=== PATIENT | female | born 1950 | race Caucasian/White ===

== ENCOUNTER 2017-07-04 17:05 | Emergency (ER) | payer BC, MEDICARE, OTHER ==
--- NOTE | 2017-07-04 17:15 | PDOC ---
Rapid Medical Evaluation Time Seen by Provider: 07/04/17 17:12 Medical Evaluation: 07/04/17 17:12 I have performed a brief in-person evaluation of this patient. The patient presents with a chief complaint of:R lower abd pain radiating to lower back and R thigh w/ urinary freq, no n/v/f/c. Denies any pmhx Pertinent physical exam findings:+ttp to R suprapubic area, no CVAT I have ordered the following:labs/ua The patient will proceed to the ED for further evaluation. Discharge Disposition - Diagnosis Abdominal pain Qualifiers: Abdominal location: right lower quadrant Qualified Code(s): R10.31 - Right lower quadrant pain - Referrals - Patient Instructions - Post Discharge Activity
[2017-07-04 17:19] VITALS: BP 159/86; PULSE 86; TEMP 98.2; BMI 25.8
[2017-07-04 17:44] LABS: BASO % 0.6 % (0-2.0); EOS % 2.5 % (0-4.5); HEMATOCRIT 40.4 % (32.4-45.2); HEMOGLOBIN 13.2 GM/dL (10.7-15.3); LYMPH % 25.5 % (8-40); MCH 26.7 pg (25.7-33.7); MCHC 32.8 g/dl (32.0-36.0); MEAN CELL VOLUME 81.4 fl (80-96); MEAN PLT VOLUME 8.8 fl (7.5-11.1); MONO % 6.1 % (3.8-10.2); NEUT % 65.3 % (42.8-82.8); PLATELET COUNT 267 K/MM3 (134-434); RBC 4.96 M/mm3 (3.60-5.2); RDW 14.6 % (11.6-15.6); WHITE BLOOD COUNT 9.1 K/mm3 (4.0-10.0)
[2017-07-04 18:09] LABS: ALBUMIN 4.1 g/dl (3.4-5.0); ALK PHOS 110 U/L (45-117); ANION GAP 8 (8-16); BILIRUBIN,TOTAL 0.2 mg/dL (0.2-1.0); BLOOD UREA NITROGEN 15 mg/dL (7-18); CHLORIDE 106 mmol/L (98-107); CO2 25 mmol/L (21-32); CREATININE 0.8 mg/dL (0.55-1.02); GLUCOSE,RANDOM 191 mg/dL (74-106); LIPASE 89 U/L (73-393); POTASSIUM 3.9 mmol/L (3.5-5.1); SGOT/AST 16 U/L (15-37); SGPT/ALT 31 U/L (12-78); SODIUM 139 mmol/L (136-145); TOT PROT 7.9 g/dl (6.4-8.2)
[2017-07-04 19:58] LABS: URINE APPEARANCE SLCLOUDY; URINE BILIRUBIN NEGATIVE (<2.0 mg/dL); URINE COLOR YELLOW; URINE GLUCOSE (UA) NEGATIVE (NEGATIVE); URINE KETONE NEGATIVE (NEGATIVE); URINE LEUK ESTERASE TRACE (NEGATIVE); URINE NITRITE NEGATIVE (NEGATIVE); URINE PROTEIN NEGATIVE (NEGATIVE); URINE UROBILINOGEN NEGATIVE mg/dL (0.2-1.0)
[2017-07-04 20:07] LABS: EPI CELLS RARE /HPF (FEW); URINE MUCUS FEW
--- NOTE | 2017-07-04 20:21 | PDOC ---
History of Present Illness - General History Source: Patient Exam Limitations: No Limitations - History of Present Illness Initial Comments: 07/04/17 20:32 The patient is a 67 year old female, with no significant past medical history, who presents to the emergency department with, right lower quadrant abdominal pain. The patient describes the pain as constant and intermittently radiating down her legs. She reports a normal PO intake. She denies recent fevers, chills, headache or dizziness. She denies recent nausea, vomit, diarrhea or constipation. She denies recent dysuria, frequency, urgency or hematuria. She denies recent chest pain or shortness of breath. Allergies: NKA Past surgical history: Cysts removed from right ovary without complications. Social history: Nonsmoker. Denies EtOH use and recreational drug use. <Sergey Aburto - Last Filed: 07/04/17 20:32> - General History Source: Patient <Sd Parry - Last Filed: 07/05/17 19:17> - General Chief Complaint: Pain, Acute Stated Complaint: PAIN, ACUTE Time Seen by Provider: 07/04/17 17:12 Past History <Sergey Aburto - Last Filed: 07/04/17 20:32> - Past Medical History COPD: No - Suicide/Smoking/Psychosocial Hx Smoking History: Never smoked Have you smoked in the past 12 months: No Information on smoking cessation initiated: No Hx Alcohol Use: No Drug/Substance Use Hx: No Substance Use Type: None <Sd Parry - Last Filed: 07/05/17 19:17> - Past Medical History Allergies/Adverse Reactions: Allergies Allergy/AdvReac Type Severity Reaction Status Date / Time No Known Allergies Allergy Verified 07/04/17 17:16 Home Medications: Ambulatory Orders NK [No Known Home Medication] 07/04/17 Review of Systems - Review of Systems Able to Perform ROS?: Yes Comments:: 07/04/17 20:33 CONSTITUTIONAL: Absent: fever, no chills, no fatigue EYES: Absent: visual changes ENT: Absent: ear pain, no sore throat CARDIOVASCULAR: Absent: chest pain, no palpitations RESPIRATORY: Absent: cough, no SOB GI: Present: RLQ abdominal pain. Absent: no nausea, no vomiting, no constipation, no diarrhea GENITOURINARY: Absent: dysuria, no frequency, no hematuria MUSKULOSKELETAL: Absent: back pain, no arthralgia, no myalgia SKIN: Absent: rash NEURO: Absent: headache All Other Systems: Reviewed and Negative <Sergey Aburto - Last Filed: 07/04/17 20:32> *Physical Exam - Vital Signs Last Vital Signs Temp Pulse Resp BP Pulse Ox 98.2 F 86 16 159/86 100 07/04/17 17:16 07/04/17 17:16 07/04/17 17:16 07/04/17 17:16 07/04/17 17:16 - Physical Exam Comments: 07/04/17 20:34 GENERAL: Well-appearing, well-nourished. No apparent distress. HEENT: Normocephalic, atraumatic. PERRL, EOM intact. CARDIOVASCULAR: Normal S1, S2. Regular rate and rhythm. PULMONARY: Clear to auscultation bilaterally. ABDOMEN: Soft, non-distended, non-tender. EXTREMITIES: Normal ROM in all four extremities. No gross deformities. SKIN: Warm, dry. No rash NEUROLOGICAL: No focal neurological deficits. <Sergey Aburto - Last Filed: 07/04/17 20:32> - Vital Signs Last Vital Signs Temp Pulse Resp BP Pulse Ox 98.2 F 86 16 159/86 100 07/04/17 17:16 07/04/17 17:16 07/04/17 17:16 07/04/17 17:16 07/04/17 17:16 <Sd Parry - Last Filed: 07/05/17 19:17> ED Treatment Course - LABORATORY CBC & Chemistry Diagram: 07/04/17 17:27 07/04/17 17:27 - ADDITIONAL ORDERS Additional order review: Laboratory Results 07/04/17 07/04/17 19:45 17:27 Sodium 139 Potassium 3.9 Chloride 106 Carbon Dioxide 25 Anion Gap 8 BUN 15 Creatinine 0.8 Creat Clearance w eGFR > 60 Random Glucose 191 H Calcium 9.0 Total Bilirubin 0.2 AST 16 ALT 31 Alkaline Phosphatase 110 Total Protein 7.9 Albumin 4.1 Lipase 89 Urine Color Yellow Urine Appearance Slcloudy Urine pH 5.0 Ur Specific [place] 1.023 Urine Protein Negative Urine Glucose (UA) Negative Urine Ketones Negative Urine Blood 1+ H Urine Nitrite Negative Urine Bilirubin Negative Urine Urobilinogen Negative Ur Leukocyte Esterase Trace Urine WBC (Auto) 7 Urine RBC (Auto) 1 Ur Epithelial Cells Rare Urine Mucus Few 07/04/17 17:27 RBC 4.96 MCV 81.4 MCHC 32.8 RDW 14.6 MPV 8.8 Neutrophils % 65.3 Lymphocytes % 25.5 Monocytes % 6.1 Eosinophils % 2.5 Basophils % 0.6 <Sergey Aburto - Last Filed: 07/04/17 20:32> - LABORATORY CBC & Chemistry Diagram: 07/04/17 17:27 07/04/17 17:27 - ADDITIONAL ORDERS Additional order review: Laboratory Results 07/04/17 07/04/17 19:45 17:27 Sodium 139 Potassium 3.9 Chloride 106 Carbon Dioxide 25 Anion Gap 8 BUN 15 Creatinine 0.8 Creat Clearance w eGFR > 60 Random Glucose 191 H Calcium 9.0 Total Bilirubin 0.2 AST 16 ALT 31 Alkaline Phosphatase 110 Total Protein 7.9 Albumin 4.1 Lipase 89 Urine Color Yellow Urine Appearance Slcloudy Urine pH 5.0 Ur Specific [place] 1.023 Urine Protein Negative Urine Glucose (UA) Negative Urine Ketones Negative Urine Blood 1+ H Urine Nitrite Negative Urine Bilirubin Negative Urine Urobilinogen Negative Ur Leukocyte Esterase Trace Urine WBC (Auto) 7 Urine RBC (Auto) 1 Ur Epithelial Cells Rare Urine Mucus Few 07/04/17 17:27 RBC 4.96 MCV 81.4 MCHC 32.8 RDW 14.6 MPV 8.8 Neutrophils % 65.3 Lymphocytes % 25.5 Monocytes % 6.1 Eosinophils % 2.5 Basophils % 0.6 <Sd Parry - Last Filed: 07/05/17 19:17> Medical Decision Making - Medical Decision Making 07/05/17 19:17 Dr. Parry: The scribe's documentation has been prepared under my direction and personally reviewed by me in its entirery. I confirm that the note above accurately reflects all work, treatment, procedures, and medical decision making performed by me. <Sd Parry - Last Filed: 07/05/17 19:17> *DC/Admit/Observation/Transfer - Attestations Scribe Attestion: 07/04/17 20:35 Documentation prepared by Sergey Aburto, acting as medical numerical control operator for Sd Parry DO. <Sergey Aburto - Last Filed: 07/04/17 20:32> - Discharge Dispostion Decision to Admit order: No <Sd Parry - Last Filed: 07/05/17 19:17> Diagnosis at time of Disposition: Abdominal pain Qualifiers: Abdominal location: right lower quadrant Qualified Code(s): R10.31 - Right lower quadrant pain - Discharge Dispostion Disposition: HOME Condition at time of disposition: Stable - Referrals Referrals: Angelita Wood MD [Staff Physician] - - Patient Instructions Printed Discharge Instructions: DI for Abdominal Pain-Adult Additional Instructions: Please follow up with your doctor as soon as possible for further evaluation of the abdominal pain you have been having. Return if any problems.
== END 2017-07-04 23:26 | disposition home or self-care (01) ==
LOC: JER 17:05
DX: R10.31 Right lower quadrant pain (principal)
CPT/HCPCS: 36415; 74176; 76830-TC; 80053; 81003; 81015; 83690; 85025; 99282-25